=== PATIENT | male | born 1965 | race Caucasian/White ===

== ENCOUNTER 2017-01-21 16:00 | Emergency (ER) | payer OTHER, BC ==
[2017-01-21 16:27] VITALS: RESP 14; TEMP 97.3
--- NOTE | 2017-01-21 16:28 | PDOC ---
Body Fluid Exposure HPI - General Chief Complaint: Body Fluid Exposure Stated Complaint: NEEDLE STK Date Seen by Provider: 01/21/17 Time Seen by Provider: 16:10 Source: POSITIVE: Patient Exam Limitations: POSITIVE: No limitations Nurse's Notes Reviewed & Considered: Yes - History of Present Illness Initial Comments: The patient is a 51-year-old male who presents to the emergency department after a needlestick exposure. He was in the operating room and poked his finger with a suture needle. The puncture site bled a couple drops of blood. He cleansed the area. The patient source patient does not have any known hepatitis or HIV however she does have a history of drug abuse. Exposure labs have been drawn from the source patient and are in the lab. The patient himself does not have any known history of hepatitis or HIV. Have you received a tetanus shot in the past 10 years?: Unknown - Patient Home Medications Home Medications: Home Medications Aspirin [Lo-Dose Aspirin Ec] 81 mg PO DAILY PRN tab 06/12/13 Multivitamin [Multi-Vitamin Daily] 1 each PO DAILY tab 06/12/13 Mometasone Furoate [Nasonex] 1 - 2 sprays .ROUTE DAILY 04/05/14 Albuterol Sulfate [Proair Hfa] 1 - 2 puff INH Q4-6H #1 inhaler 09/25/15 Ezetimibe/Simvastatin [Vytorin 10-40 Mg Tablet] 1 tab PO QHS #90 tab 09/14/16 - Patient Allergies Allergies/Adverse Reactions: Allergies Allergy/AdvReac Type Severity Reaction Status Date / Time ciprofloxacin [From Cipro] Allergy Intermediate itchy rash Verified 01/21/17 16: 06 on hands ciprofloxacin HCl Allergy Intermediate itchy rash Verified 01/21/17 16:06 [From Cipro] on hands ketotifen fumarate Allergy Intermediate ITCHING Verified 01/21/17 16:06 [From Zaditor] Penicillins Allergy Intermediate hives Verified 01/21/17 16:06 sulfamethoxazole Allergy Intermediate rash Verified 01/21/17 16:06 [From Bactrim] trimethoprim [From Bactrim] Allergy Intermediate rash Verified 01/21/17 16:06 latex AdvReac Mild ITCHING Verified 01/21/17 16:06 Past Medical History - heen HEENT History: Denies History Cardiovascular History: Hyperlipidemia Respiratory History: Snoring Additional Respiratory History: SEASONAL ALLERGIES/RHINITIS Gastrointestinal History: Denies History Genitourinary History: Denies History Endocrine History: Denies History Musculoskeletal History: Denies History Prosthesis or Implant: No Additional Musculoskeletal History: LEFT KNEE PAIN Neurological History: Denies History Blood Disorders: Denies History Psychiatric History: Denies History History of Sexually Transmitted Diseases: No Cancer History: Denies History History of MDRO: No History of Other Communicable Diseases: No Alcohol Use: None Substance Use Type: None Previous Surgical History: Yes Type / Date of Surgery: L KNEE SCOPE/ WISDOM TEETH/ R BUNIONECTOMY. RIGHT INGUINAL HERNIA Anesthesia Reactions: No Malignant Hyperthermia: No Significant Family History: Heart disease Past Medical History Reviewed: Reviewed - No Changes ROS - Limitations ROS Limitations: No Limitations (Review of systems otherwise noncontributory) Body Fluid Exposure PE - General Appearance General Appearance: REPORTS: Alert, No Acute Distress Body Fluid Exposure Progress - Results Reviewed by me Lab Results Reviewed: Yes Lab Results:: Laboratory Results 01/21/17 Range/Units 16:15 HIV 1&2 Antibody Rapid Negative (N) HIV P24 Antigen Negative (N) - Patient's Progress MDM / ED Course: The source patient was drawn. The source patient was negative for HIV and hepatitis panel is pending. Baseline labs were also drawn on the patient including HIV and hepatitis. His rapid HIV is also negative. At this point the exposure is considered fairly low risk. The patient is advised to follow- up with employee health per protocol. - Consult Counseled: POSITIVE: Patient, RE: DX, RE: Need for F/U Patient Care Time - Estimated PCT Patient Care Time (In Minutes): 10 Vital Signs - Recent Vital Signs Vital Signs: Vital Signs (Last 8 hours) Temp Pulse Resp BP Pulse Ox 01/21/17 16:00 97.3 F 68 14 121/82 93 - VS Reviewed Vital Signs Reviewed: Yes Discharge Clinical Impression: Employee exposure to body fluids Discharge Disposition: Discharged to Home Condition: Stable Patient Instructions Given at Discharge: Body Substance Exposure (ED) Additional Instructions: Follow-up with employee health regarding lab tests and further follow-up and testing, they will contact you to make these arrangements. Follow Up With: MAJO OSHEA [Primary Care Provider] -
[2017-01-21 17:06] LABS: HIV ANTIBODY NEGATIVE (N); HIV-1 P24 ANTIGEN NEGATIVE (N)
== END 2017-01-21 16:30 | disposition home or self-care (01) ==
LOC: ER 16:00
DX: Z77.21 Contact with and (suspected) exposure to potentially hazardous body fluids (principal); Y92.234 Operating room of hospital as the place of occurrence of the external cause; Y99.0 Civilian activity done for income or pay
CPT/HCPCS: 36415; 99282